=== PATIENT | female | born 1960 | race African-American/Black ===

== ENCOUNTER 2017-08-20 23:27 | Emergency (ER) | payer OTHER ==
[~2017-08-20] VITALS: Ht 165.1 cm; Wt 98.8 kg
[2017-08-20 23:35] VITALS: BP 151/76; PULSE 99; RESP 18; TEMP 99.3; O2SAT 95
[2017-08-21] MEDS ORDERED: PROM6.256 PO
--- NOTE | 2017-08-21 | PD ---
HPI Chief Complaint: Cold / Flu Symptoms Time Seen by Provider: 23:50 Travel History International Travel<30 days: No Contact w/Intl Traveler<30days: No Traveled to known affect area: No History of Present Illness HPI This is a 56-year-old female who presents to the emergency department with cough , chills and some loose stool today. It's been going on for 3 days, constant, moderate severity. Her is sick with similar symptoms. She started azithromycin 3 days ago but she doesn't like she's getting better. Her cough is worse in the evenings. [facility] Past Medical History Narrative Medical GERD ?: Not Social History Tobacco Use: No Review of Systems Except as stated in HPI: all other systems reviewed are Neg Physical Exam Narrative GENERAL:Well appearing, no acute distress SKIN: Focused skin assessment warm and dry. HEAD: Atraumatic. Normocephalic. EYES: Pupils equal and round. No injection or drainage. ENT: Moist mucous membranes. No posterior pharyngeal erythema or exudates. NECK: Trachea midline. CARDIOVASCULAR: Regular rate and rhythm. No murmur appreciated. RESPIRATORY: Clear to auscultation. Breath sounds equal bilaterally. GASTROINTESTINAL: Abdomen soft, non-tender, nondistended. MUSCULOSKELETAL: No obvious deformities. NEUROLOGICAL: Awake and alert. No obvious cranial nerve deficits. Moving all extremities. PSYCHIATRIC: Appropriate mood and affect; insight and judgment normal. Data Data Last Documented VS Vital Signs Date Time Temp Pulse Resp B/P (MAP) Pulse Ox O2 Delivery O2 Flow Rate FiO2 08/20/17 23:35 99.3 99 18 151/76 (101) 95 MDM Medical Decision Making Medical Screen Exam Complete: Yes Emergency Medical Condition: Yes Differential Diagnosis Bronchitis, pneumonia, influenza Narrative Course This is a well-appearing 56-year-old female who presents to the emergency department with cough, loose stools and subjective fevers. Patient has a clear lung exam and is not hypoxic. She is nontoxic appearing. She's already on azithromycin. I think it's reasonable to prescribe her a codeine cough syrup. Don't think she requires any additional diagnostics. Patient will be discharged home. Diagnosis Primary Impression: Bronchitis Additional Instructions: If you develop severe chest pain, shortness of breath, sweating, lightheadedness , dizziness or difficulty breathing return to the emergency department immediately. Continue your antibiotics. Followup with your primary care physician in 2-3 days if your symptoms are not resolved. Med/Other Pt SpecificInfo: Prescription(s) given Scripts Promethazine-Codeine Liq (Promethazine-Codeine Liq) 6.25-10 Mg/5 Ml Syrp 5-10 ML PO Q6H Y for COUGH AND/OR COLD SYMPTOMS, #60 ML 0 Refills Prov: Nena Hopkins MD 08/21/17 Disposition: 01 DISCHARGE HOME Condition: Stable Nena Hopkins MD Aug 21, 2017 00:00
[2017-08-21] MEDS ORDERED: AZIT250T3 PO (00:09)
[2017-08-21 00:31] VITALS: BP 141/74
== END 2017-08-21 00:33 | disposition home or self-care (01) ==
LOC: PHED 23:27
DX: J40 Bronchitis, not specified as acute or chronic (principal)
CPT/HCPCS: 99283